=== PATIENT | male | born 1960 | race Caucasian/White ===

== ENCOUNTER → 2017-11-06 | Outpatient (CLI) | payer BC ==
[~2017-11-06] MED LIST: CIALIS20 MG PO; CYCLOBENZAPRINE5 MG PO; GLIMEPIRIDE4 MG PO; JANUMET XR 50-1 EAC1 PO; LEVOTHYROXINE PO; PRAVASTATIN PO; TRICOR145 MG PO
--- NOTE | 2017-11-07 10:01 | Diagnostic Imaging Report ---
MRI of the right shoulder without contrast. History: Shoulder pain. Decreased range of motion. Pain not responding to conservative management Comparison: None Technique: Coronal PD FS, sagital PD FS, and axial PD and PD FS. Findings: Rotator cuff: There is rotator cuff tendinosis with midsubstance degeneration and articular sided fraying involving the anterior fibers of the supraspinatus tendon at the humeral insertion site. There is focal decreased signal intensity within the substance of the supraspinatus/infraspinatus tendons/muscles best seen on series 7 image 7 through 11. This is consistent with rotator cuff calcific tendinosis. Additionally, there is subscapularis tendinosis. The teres minor tendon is intact. Osseous acromion complex: There is a type II acromion with mild lateral downsloping. There is mild degenerative arthrosis at the acromioclavicular joint with undersurface spurring and mild narrowing of the supraspinatus tendon outlet. Glenohumeral joint: There is degeneration and fraying of the labrum. The articular cartilage surfaces are intact. The humeral head is well-seated in the glenoid fossa. Biceps tendon: The biceps tendon is intact. Other findings: Negative for muscle denervation or osseous fracture. Impression: Findings consistent with rotator cuff calcific tendinosis with mild articular sided fraying involving the anterior fibers of the supraspinatus tendon at the humeral insertion site. 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 Signed by: Dr. Rosalio Alexander M.D. on 11/07/2017 9:58 AM
== END ==
LOC: MRI 16:47
PROVIDERS: ATTEND Family Medicine
DX: M25.511 Pain in right shoulder (principal)

== ENCOUNTER → 2022-01-16 | Day surgery (SDC) | payer BC ==
[2022-01-12 10:31] LABS: ANION GAP 15.1 mmol/L (8-16); BLOOD UREA NITROGEN 21 mg/dL (7-26); BUN/CREATININE RATIO 24 (6-25); CARBON DIOXIDE 19 mmol/L (22-29); CHLORIDE 108 mmol/L (98-107); CREATININE, SERUM 0.87 mg/dL (0.72-1.25); GLUCOSE 189 mg/dL (74-118); POTASSIUM 4.1 mmol/L (3.5-5.1); SODIUM 138 mmol/L (136-145)
[~2022-01-16] MED LIST changes: +AZATHIOPRINE100 MG PO; +CRESTOR10 MG PO; +FENTANYL CITRATE/PF 100MCG/2 ML INJ ONE; +JANUVIA100 MG PO; +LEVOCETIRIZINE D5 MG PEG; +LIALDA1.2 GM PO; +LISINOPRIL2.5 MG PO; +MIDAZOLAM HCL 2 MG/2 ML VIAL ONE; +OZEMPIC0.25 MG/0. SC; +PROPOFOL IV EMULSION 10 MG/ML 20 ML VIAL ONE; +SYNJARDY XR 121 EACH PO
[2022-01-16 11:40] VITALS: BP 103/75
== END | disposition home or self-care (01) ==
LOC: OR 08:08
PROVIDERS: ATTEND Internal Medicine Gastroenterology
DX: K51.90 Ulcerative colitis, unspecified, without complications (principal); D12.0 Benign neoplasm of cecum; D12.2 Benign neoplasm of ascending colon; D12.3 Benign neoplasm of transverse colon; G47.33 Obstructive sleep apnea (adult) (pediatric); E78.5 Hyperlipidemia, unspecified; I10 Essential (primary) hypertension; E11.9 Type 2 diabetes mellitus without complications; E03.9 Hypothyroidism, unspecified; E66.9 Obesity, unspecified; F17.210 Nicotine dependence, cigarettes, uncomplicated; Z01.810 Encounter for preprocedural cardiovascular examination; Z01.812 Encounter for preprocedural laboratory examination; Z20.822 Contact with and (suspected) exposure to COVID-19; Z79.84 Long term (current) use of oral hypoglycemic drugs; Z79.899 Other long term (current) drug therapy; Z68.38 Body mass index [BMI] 38.0-38.9, adult
CPT/HCPCS: 0223U; 36415 ×2; 45384; 45385; 80048; 82948; 93005; J2250; J2704; J3010